=== PATIENT | male | born 1955 | race Caucasian/White ===

== ENCOUNTER 2018-05-02 22:51 | Emergency (ER) | payer SELFPAY ==
[~2018-05-02] VITALS: Ht 175.3 cm; Wt 68.2 kg
[2018-05-03] MEDS ORDERED: TRAMADOL 50 MG TAB PO (00:47)
[2018-05-03 01:04] VITALS: BP 142/94
== END 2018-05-03 01:04 | disposition home or self-care (01) ==
LOC: ED 22:51
DX: H16.133 Photokeratitis, bilateral (principal); W89.8XXA Exposure to other man-made visible and ultraviolet light, initial encounter; Y92.008 Other place in unspecified non-institutional (private) residence as the place of occurrence of the external cause
CPT/HCPCS: J0595; J1885

== ENCOUNTER 2018-05-10 04:55 | Emergency (ER) | payer SELFPAY ==
[~2018-05-10 04:55] MED LIST: TRAMADOL 50 MG TAB PO
[2018-05-10 08:22] VITALS: BP 131/97
== END 2018-05-10 08:10 | disposition home or self-care (01) ==
LOC: ED 04:55
DX: S30.0XXA Contusion of lower back and pelvis, initial encounter (principal); V80.919A Animal-rider injured in unspecified transport accident, initial encounter; Y93.52 Activity, horseback riding; Y92.009 Unspecified place in unspecified non-institutional (private) residence as the place of occurrence of the external cause; F17.200 Nicotine dependence, unspecified, uncomplicated; M62.830 Muscle spasm of back; M41.26 Other idiopathic scoliosis, lumbar region
CPT/HCPCS: J1885; J2360